=== PATIENT | female | born 1985 | race Caucasian/White ===

== ENCOUNTER 2016-10-15 09:55 | Emergency (ER) | payer OTHER ==
[2016-10-15] MEDS ORDERED: KETOROLAC 60 MG/2 ML VIAL IM STA (11:20)
[2016-10-15] MEDS ORDERED: ONDANSETRON ODT 4 MG TABLET TL STA (11:20)
[2016-10-15] MEDS ORDERED: ONDANSETRON ODT 4 MG TABLET ONE (11:28)
[2016-10-15] MEDS ORDERED: KETOROLAC 60 MG/2 ML VIAL ONE (11:28)
== END 2016-10-15 13:13 | disposition home or self-care (01) ==
DX: M62.830 Muscle spasm of back (principal)
CPT/HCPCS: 74176; 81003; 81025; 96372; 99282; 99284; Q0162